=== PATIENT | female | born 1975 | race Caucasian/White ===

== ENCOUNTER 2021-02-28 10:14 | Outpatient (REF) | payer MEDICAID, SELFPAY ==
--- NOTE | ~2021-02-28 | XR_ITS ---
EXAMINATION: XR HAND, RIGHT XR HAND, LEFT CLINICAL INFORMATION: M05.9 - Rheumatoid arthritis with rheumatoid factor COMPARISON: Radiographs bilateral hands 02/05/2017 TECHNIQUE: Each hand is imaged in 3 views. There are total of 6 views. FINDINGS: Right: There is normal bony mineralization. No periarticular demineralization. There is no fracture, dislocation, destructive process. No focal soft tissue swelling. The ulnar variance is neutral. Again, there are prominent osteoarthritic changes involving the first carpometacarpal joint, slightly increased since prior exam 2016. The remainder of the carpus is unremarkable. No chondrocalcinosis. The MCP and interphalangeal joints are unremarkable. No joint narrowing or erosive change. Left: There is normal bony mineralization. No periarticular demineralization. There is no fracture, dislocation, destructive process. No focal soft tissue swelling. The ulnar variance is neutral. The carpus shows no joint narrowing or erosive change or chondrocalcinosis. The MCP and interphalangeal joints are unremarkable. No joint narrowing or erosive change. XR/XR hand LT min 3V IMPRESSION: 1. Right: Osteoarthritis first carpometacarpal joint. 2. Left: Unremarkable. No joint narrowing or erosive change.
--- NOTE | ~2021-02-28 | XR_ITS ---
EXAMINATION: XR HAND, RIGHT XR HAND, LEFT CLINICAL INFORMATION: M05.9 - Rheumatoid arthritis with rheumatoid factor COMPARISON: Radiographs bilateral hands 02/05/2017 TECHNIQUE: Each hand is imaged in 3 views. There are total of 6 views. FINDINGS: Right: There is normal bony mineralization. No periarticular demineralization. There is no fracture, dislocation, destructive process. No focal soft tissue swelling. The ulnar variance is neutral. Again, there are prominent osteoarthritic changes involving the first carpometacarpal joint, slightly increased since prior exam 2016. The remainder of the carpus is unremarkable. No chondrocalcinosis. The MCP and interphalangeal joints are unremarkable. No joint narrowing or erosive change. Left: There is normal bony mineralization. No periarticular demineralization. There is no fracture, dislocation, destructive process. No focal soft tissue swelling. The ulnar variance is neutral. The carpus shows no joint narrowing or erosive change or chondrocalcinosis. The MCP and interphalangeal joints are unremarkable. No joint narrowing or erosive change. XR/XR hand RT min 3V IMPRESSION: 1. Right: Osteoarthritis first carpometacarpal joint. 2. Left: Unremarkable. No joint narrowing or erosive change.
--- NOTE | ~2021-02-28 | XR_ITS ---
EXAMINATION: XR CHEST CLINICAL INFORMATION: Rheumatoid arthritis with rheumatoid factor COMPARISON: Chest radiographs 05/12/2017, 10/11/2014 TECHNIQUE: 2 views of the chest were obtained. FINDINGS: The lungs are clear. There are no visible fibrotic changes on plain film. No airspace consolidation, pleural thickening, or effusion. The heart is normal in size. The hilar and mediastinal contours are normal. Tapering at the right cardiophrenic angle is consistent with areolar tissue. There is mild levocurvature thoracic spine with mild multilevel degenerative changes. XR/XR chest 2V IMPRESSION: Unremarkable examination.
--- NOTE | ~2021-02-28 | XR_ITS ---
EXAMINATION: XR CERVICAL SPINE CLINICAL INFORMATION: M05.9 - Rheumatoid arthritis with rheumatoid factor COMPARISON: None TECHNIQUE: 3 views of the cervical spine were obtained. FINDINGS: There is rightward tilting cervical spine on frontal view. The cervical vertebral bodies are normal in height and there is no vertebral compression, spondylolisthesis, destructive process, or prevertebral soft tissue swelling. There is normal cervical lordosis. Bridging anterior osteophytes are present at multiple levels. There is borderline disc narrowing C5-C6 and C6-C7. No visible erosive changes. The facets are unremarkable. The odontoid appears intact. XR/XR cervical spine 2V IMPRESSION: 1. Multilevel anterior bridging osteophytes. 2. Mild disc narrowing C5-C6 and C6-C7. No erosive changes.
[2021-02-28 11:43] LABS: MANUAL DIFF FLAG NO
[2021-02-28 11:48] LABS: Basophils Percent Auto 0.5 % (0-2); Eosinophils Absolute Auto 0.1 X10*3/uL (0.0-0.4); Eosinophils Percent Auto 0.7 % (0-4); Hematocrit 40.9 % (37-47); Hemoglobin 13.8 g/dl (12.0-16.0); Imm Gran Abs Auto 0.03 X10*3/uL (0.00-0.03); Imm Gran Pct Auto 0.4 % (0.0-0.4); Lymphocytes Absolute Auto 2.6 X10*3/uL (1.2-4.9); Lymphocytes Percent Auto 35.7 % (20-40); Mean Corpuscular HGB Conc 33.7 g/dl (31.0-35.0); Mean Corpuscular Hemoglobin 28.9 pg (27.0-33.0); Mean Corpuscular Volume 85.6 fL (80-98); Mean Platelet Volume 9.6 fL (9.4-12.3); Monocytes Absolute Auto 0.4 X10*3/uL (0.1-1.2); Neutrophils Absolute Auto 4.3 X10*3/uL (2.0-8.3); Neutrophils Percent Auto 57.7 % (45-73); Platelet Count 284 X10*3/uL (160-400); Red Blood Count 4.78 X10*6/uL (4.20-5.50); Red Cell Distribution Width 14.4 % (11.0-16.0); White Blood Count 7.4 X10*3/uL (4.8-10.8)
[2021-02-28 12:19] LABS: Alanine Aminotransferase 18 U/L (0-31); Albumin Level 4.2 g/dL (3.5-5.0); Alkaline Phosphatase 95 U/L (39-117); Anion Gap 13 (12-20); Aspartate Amino Transferase 46 U/L (5-31); Bilirubin Total 0.7 mg/dL (0.0-1.0); Blood Urea Nitrogen 6 mg/dL (9-16); C Reactive Protein 0.29 mg/dL (< or = 0.50); Calcium 9.8 mg/dL (8.4-10.2); Carbon Dioxide 25 mmol/L (22-29); Chloride 104 mmol/L (96-108); Estimated Glomerular Filt Rate > 60; Glucose Random 101 mg/dL (60-115); Potassium 3.8 mmol/L (3.3-5.1); Sodium 138 mmol/L (135-145); Total Protein 6.8 g/dL (6.5-8.0)
[2021-02-28 12:32] LABS: Erythrocyte Sedimentation Rate 14 MM/HR (0-20)
[2021-03-02 07:50] LABS: HBc Num1 0.05 S/CO (0.00-0.79); Hepatitis A Antibody IgM 0.25 Index (0-0.79); Hepatitis B Core Antibody Nonreactive (Nonreactive); ~HepC Num1 2.38 S/CO (0.00-0.79); ~Hepatitis A Antibody IgM Nonreactive (Nonreactive); ~Hepatitis C Antibody Reactive (Nonreactive)
[2021-03-02 08:08] LABS: HBS Num1 54.19 mIU/mL (0-7.99); HBsAGNum1 0.32 S/CO (0.00-0.99); Hepatitis B Surface Antigen Negative (Negative); ~Hepatitis B Surface Antibody REACTIVE (Nonreactive)
[2021-03-02 13:36] LABS: Cyclic Citrullinated Peptide <16 UNITS
[2021-03-02 20:52] LABS: TS Negative Control Passed; TS Panel A 0; TS Panel B 0; TS Positive Control Passed; TSpotTB Negative (SeeBelow)
[2021-03-04 14:27] LABS: HCV Log PCR <1.18 NOT DETECTED Log IU/mL (NOT DETECTED); HepC Viral Load <15 NOT DETECTED IU/mL (NOT DETECTED)
== END 2021-02-28 10:15 | disposition home or self-care (01) ==
LOC: HO.XRAY 10:14
PROVIDERS: PCP Internal Medicine; Visit Provider Student in an Organized Health Care Education/Training Program
DX: M05.9 Rheumatoid arthritis with rheumatoid factor, unspecified (principal); Z79.899 Other long term (current) drug therapy
CPT/HCPCS: 36415; 71046; 72040; 73130; 80053; 85025; 85652; 86140; 86200; 86481; 86704; 86706; 86709; 86803; 87340; 87522; 99202

== ENCOUNTER → 2021-03-16 14:44 | Outpatient (BNVA) | payer MEDICAID, SELFPAY | PROVIDERS: PCP Internal Medicine; Visit Provider Student in an Organized Health Care Education/Training Program | DX: M05.9 Rheumatoid arthritis with rheumatoid factor, unspecified (principal) | CPT/HCPCS: 99212 ==

== ENCOUNTER → 2021-03-26 13:10 | Outpatient (BNVA) | payer MEDICAID, SELFPAY | PROVIDERS: Visit Provider Internal Medicine | DX: R76.8 Other specified abnormal immunological findings in serum (principal) | CPT/HCPCS: 99202 ==

== ENCOUNTER 2021-05-22 11:45 | Outpatient (REF) | payer MEDICAID, SELFPAY ==
[2021-05-22 12:11] LABS: MANUAL DIFF FLAG NO
[2021-05-22 12:15] LABS: Basophils Percent Auto 0.3 % (0-2); Eosinophils Absolute Auto 0.1 X10*3/uL (0.0-0.4); Eosinophils Percent Auto 1.3 % (0-4); Hematocrit 38.2 % (37-47); Hemoglobin 12.7 g/dl (12.0-16.0); Imm Gran Abs Auto 0.07 X10*3/uL (0.00-0.03); Imm Gran Pct Auto 0.8 % (0.0-0.4); Lymphocytes Absolute Auto 3.6 X10*3/uL (1.2-4.9); Lymphocytes Percent Auto 40.9 % (20-40); Mean Corpuscular HGB Conc 33.2 g/dl (31.0-35.0); Mean Corpuscular Hemoglobin 29.5 pg (27.0-33.0); Mean Corpuscular Volume 88.6 fL (80-98); Mean Platelet Volume 9.1 fL (9.4-12.3); Monocytes Absolute Auto 0.5 X10*3/uL (0.1-1.2); Monocytes Percent Auto 5.3 % (2-11); Neutrophils Absolute Auto 4.5 X10*3/uL (2.0-8.3); Neutrophils Percent Auto 51.4 % (45-73); Platelet Count 226 X10*3/uL (160-400); Red Blood Count 4.31 X10*6/uL (4.20-5.50); Red Cell Distribution Width 15.1 % (11.0-16.0); White Blood Count 8.7 X10*3/uL (4.8-10.8)
[2021-05-22 12:36] LABS: Alanine Aminotransferase 13 U/L (0-31); Albumin Level 3.9 g/dL (3.5-5.0); Alkaline Phosphatase 87 U/L (39-117); Anion Gap 11 (12-20); Aspartate Amino Transferase 25 U/L (5-31); Bilirubin Total 0.4 mg/dL (0.0-1.0); Blood Urea Nitrogen 9 mg/dL (9-16); C Reactive Protein 0.37 mg/dL (< or = 0.50); Calcium 9.5 mg/dL (8.4-10.2); Carbon Dioxide 29 mmol/L (22-29); Chloride 103 mmol/L (96-108); Estimated Glomerular Filt Rate > 60; Glucose Random 101 mg/dL (60-115); Sodium 139 mmol/L (135-145); Total Protein 6.3 g/dL (6.5-8.0)
[2021-05-22 13:11] LABS: Erythrocyte Sedimentation Rate 17 MM/HR (0-20)
== END 2021-05-22 11:46 | disposition home or self-care (01) ==
LOC: HO.LAB 11:45
PROVIDERS: PCP Internal Medicine; Visit Provider Student in an Organized Health Care Education/Training Program
DX: M05.9 Rheumatoid arthritis with rheumatoid factor, unspecified (principal)
CPT/HCPCS: 36415; 80053; 85025; 85652; 86140

== ENCOUNTER → 2021-05-31 15:40 | Outpatient (BNVA) | payer MEDICAID, SELFPAY | PROVIDERS: PCP Internal Medicine; Visit Provider Student in an Organized Health Care Education/Training Program | DX: M05.9 Rheumatoid arthritis with rheumatoid factor, unspecified (principal) | CPT/HCPCS: 99212 ==

== ENCOUNTER → 2021-06-19 12:49 | Outpatient (BNVA) | payer MEDICAID, SELFPAY | PROVIDERS: PCP Internal Medicine; Visit Provider Student in an Organized Health Care Education/Training Program ==

== ENCOUNTER 2024-03-11 16:19 | Outpatient (REF) | payer MEDICAID, SELFPAY ==
[2024-03-12 21:09] LABS: C. trachomatis RNA TMA NOT DETECTED (NOT DETECTED); N. gonorrhoeae RNA TMA NOT DETECTED (NOT DETECTED)
== END 2024-03-11 16:20 | disposition home or self-care (01) ==
LOC: HO.HHCLNP 16:19
PROVIDERS: Visit Provider Internal Medicine
DX: Z01.419 Encounter for gynecological examination (general) (routine) without abnormal findings (principal)
CPT/HCPCS: 81513; 87491; 87591; 88142

== ENCOUNTER 2024-10-28 11:59 | Outpatient (REF) | payer MEDICAID, SELFPAY ==
[2024-10-28 14:03] LABS: Alanine Aminotransferase 19 U/L (0-31); Albumin Level 3.6 g/dL (3.5-5.0); Alkaline Phosphatase 104 U/L (39-117); Anion Gap 9 (12-20); Aspartate Amino Transferase 44 U/L (5-31); Bilirubin Direct 0.1 mg/dL (0.0-0.5); Bilirubin Total 0.3 mg/dL (0.0-1.0); Blood Urea Nitrogen 5 mg/dL (9-16); Calcium 9.8 mg/dL (8.4-10.2); Carbon Dioxide 30 mmol/L (22-29); Chloride 105 mmol/L (96-108); Cholesterol 192 mg/dL (<200); Estimated Glomerular Filt Rate > 60; Glucose Random 91 mg/dL (60-115); HDL Cholesterol 42 mg/dL (>40); LDL Cholesterol Calculated 120 mg/dL (<100); Potassium 3.9 mmol/L (3.3-5.1); Sodium 140 mmol/L (135-145); TSH reflex Free T4 3.75 uIU/mL (0.32-4.0); Total Protein 6.3 g/dL (6.5-8.0); Triglycerides 151 mg/dL (<150); Vitamin D 25-OH Total 22.1 ng/mL (>30)
[2024-10-28 14:22] LABS: Reflex LDLD? No
[2024-10-31 04:59] LABS: TS Negative Control Passed; TS Panel A 1; TS Panel B 0; TS Positive Control Passed; TSpotTB Negative (Negative)
== END 2024-10-28 12:00 | disposition home or self-care (01) ==
LOC: HO.HHCL 11:59
PROVIDERS: Visit Provider Internal Medicine
DX: R56.9 Unspecified convulsions (principal); M05.79 Rheumatoid arthritis with rheumatoid factor of multiple sites without organ or systems involvement
CPT/HCPCS: 36415; 80053; 80061; 82248; 82306; 84443; 86481

== ENCOUNTER → 2024-11-28 19:11 | Outpatient (BNV) | payer MEDICAID, SELFPAY | PROVIDERS: PCP Internal Medicine; Visit Provider Radiology Diagnostic Radiology | DX: M47.22 Other spondylosis with radiculopathy, cervical region (principal) | CPT/HCPCS: 72141 ==

== ENCOUNTER 2024-11-28 19:12 | Outpatient (REF) | payer MEDICAID, SELFPAY ==
--- NOTE | ~2024-11-28 | MR_ITS ---
EXAMINATION: MR CERVICAL SPINE WITHOUT CONTRAST CLINICAL INFORMATION: Cervical radiculopathy. COMPARISON: None available. TECHNIQUE: MRI of the cervical spine was obtained using routine sequences without contrast. FINDINGS: Submitted for interpretation on November 30, 2024. Craniocervical junction is intact. No bone marrow STIR signal abnormality. Cervical spinal cord signal is normal. There is a grade 1 retrolisthesis C6-7. There is a grade 1 anterolisthesis C5-6. Syndesmophyte formation/marginal osteophyte formation at C5-6 and C6-7 levels and to a lesser extent C4-5. C2-3: Broad-based disc osteophyte complex formation. No neuroforamina stenosis. No cord compression. C3-4: Broad-based disc osteophyte complex formation. No neuroforamina stenosis. No cord compression. C4-5: Broad-based disc osteophyte compresses formation. No cord compression. No neuroforamina stenosis. C5-6: Broad-based disc osteophyte complex formation. No neuroforamina stenosis. No cord compression. C6-7: Broad-based disc osteophyte complex formation. No cord compression. No neuroforamina stenosis. C7-T1: No disc herniation. No neuroforamina stenosis. No prevertebral compartment hematoma, mass or fluid collection. Flow void signal within the main vessels is normal. Right vertebral artery is dominant. MR/MR cervical spine wo con IMPRESSION: Multilevel cervical spondylosis, C3 C7 without cord compression, edema and or myelopathy. Electronically signed by: Richard Acuña MD 12/01/2024 07:26 AM JONAS
== END 2024-11-28 19:13 | disposition home or self-care (01) ==
LOC: HO.MRI 19:12
PROVIDERS: PCP Internal Medicine; Visit Provider Internal Medicine
DX: M54.12 Radiculopathy, cervical region (principal)
CPT/HCPCS: 72141

== ENCOUNTER 2025-08-23 17:09 | Emergency (ER) | payer MEDICARE, MEDICAID, SELFPAY ==
[2025-08-23 17:22] VITALS: BP 116/83; PULSE 73; RESP 18; TEMP 36.2; O2SAT 97; BMI 25.4
--- NOTE | 2025-08-23 17:23 | PC.NURSE ---
to call daughter [phone]
[2025-08-23 18:34] VITALS: BP 99/53; PULSE 71; RESP 15; TEMP 36.6; O2SAT 99
--- NOTE | 2025-08-23 18:41 | ED.SEIZURE ---
HPI - Seizure General Chief Complaint: Seizure Stated Complaint: 2 witnessed pérez, A&O x4 Time Seen by Provider: 08/23/25 17:43 Source: patient, family and EMS Mode of arrival: EMS Limitations: no limitations History of Present Illness ED Provider: Dr. Traci Black HPI Narrative: Patient comes to the emergency room via ambulance. According to the patient and her family patient had 2 seizures. According to the patient, they were both witnessed. No head injury. Patient takes Keppra, numbness doses. Patient states that she has mild bilateral musculoskeletal pain, no head injury, no blood thinners. Patient was over to the ground by family. According to the patient, she had a seizure a proximally 2-3 weeks ago, patient's Keppra was increased by the PCP. Patient has a new appointment pending for neurology in couple of weeks.. According to the family, patient has had EEGs in the past, nondiagnostic. Patient states that she feels sad, has been having problems with her up ?dysfunctional family?, patient crying, states that she is afraid that her mother will on her any time now. Patient admits that she has a lot of anxiety. Related Data Home Medications ?Medication ?Instructions ?Recorded ?Confirmed cholecalciferol (vitamin D3) 25 25 mcg PO DAILY 02/28/21 mcg (1,000 unit) capsule levetiracetam 750 mg tablet 1,500 mg PO BID 02/28/21 (Keppra) Previous Rx's ?Medication ?Instructions ?Recorded folic acid 1 mg tablet 1 mg PO DAILY #30 tabs 03/16/21 methotrexate sodium 2.5 mg tablet 10 mg (4 x 2.5 mg) PO QWEEK #16 05/30/21 tabs adalimumab 40 mg/0.4 mL See Rx Instructions subcut 10/02/21 subcutaneous pen kit (Humira(CF) .COMPLEX #2 ea Pen) Allergies Allergy/AdvReac Type Severity Reaction Status Date / Time doxycycline Allergy Intermediate hives Verified 08/23/25 17:23 bee pollen (BEE STINGS) Allergy Unknown SWELLING Verified 08/23/25 17:23 bee stings Allergy Unknown swelling Uncoded 08/23/25 17:23 mushrooms Allergy Unknown hives Uncoded 08/23/25 17:23 Review of Systems Review of Systems: Constitutional : No Weight loss, No Fever, No Chills, No Night Sweats, No Fatigue, No Malaise ENT/Mouth : No Hearing loss, No Ear Pain, No Nasal Congestion, No Sinus Pain, No Hoarseness, No sore throat, No Rhinorrhea, No Swallowing Difficulty Eyes: No Eye Pain, No Swelling, No Redness, No Foreign Body, No Discharge, No Vision Changes Cardiovascular : No Chest Pain, No SOB, No Dyspnea on Exertion, No Orthopnea, No Edema, No Palpitations Respiratory : No Cough, No Sputum, No Wheezing, No Smoke Exposure, No Dyspnea Gastrointestinal : No Nausea, No Vomiting, No Diarrhea, No Constipation, No abdominal Pain, No Hematochezia, No Melena Genitourinary : no irregular bleeding, No Dysuria, No Urinary Frequency, No Hematuria, No Urinary Incontinence, No Urgency, No Flank Pain, No Urinary Flow Changes, No Hesitancy Musculoskeletal : No joint pain, No Myalgias, No Joint Swelling Skin : No Skin Lesions, No rash Neuro : Complaining of having a seizure, No Weakness, No Numbness, No Paresthesias, No Loss of Consciousness, No Dizziness, No Headache Psych : Complaining of anxiety, No Depression, No SI/HI/AH/VH, No Social Issues, Heme/Lymph: No Bruising, No Bleeding,No Lymphadenopathy Endocrine : No Polyuria, No Polydipsia, No Temperature Intolerance PMFSH Past Medical History Medical History Smoker PTSD (post-traumatic stress disorder) Anxiety Depression Polyarthralgia Seizures Surgical History Hx of section Hx of tubal ligation Family History Family History Mother Lupus HTN (hypertension) Diabetes Arthritis Sister Thyroid disease Arthritis Father Alcoholism HTN (hypertension) Legally blind Depression Social History Social History Alcohol intake: never Cigarettes Per Day: 4 Years Smoked: 20 Advance Directives: No Advance Directives Information Provided: Yes Physical Exam Exam: Exam: Appearance: Alert. Oriented X3. No acute distress. Eyes: Pupils equal, round and reactive to light. ENT: Pharynx normal. Neck: Normal inspection. Neck supple. No lymph nodes noted. No crepitus CVS: Normal heart rate and rhythm. Pulses normal. Normal S1 and S2 Respiratory: No respiratory distress. Breath sounds normal. No Wheezing. No rales Abdomen: Soft and nontender. No rigidity. No distention. Skin: Skin warm and dry. Normal skin color. Normal skin turgor. Extremities: No lower extremity edema. No Lacerations. No Rash Neuro: Oriented X 3. No motor deficit. No sensory deficit. Moving all extremities. No slurred speech. CN 2 through 12 grossly intact Psych: calm, cooperative, normal affect Vital Signs: Vital Signs: Last Vital Signs Temp 98 F 08/23/25 18:34 Pulse 71 08/23/25 18:34 Resp 15 08/23/25 18:34 BP 99/53 L 08/23/25 18:34 Pulse Ox 99 08/23/25 18:34 O2 Del Method Room Air 08/23/25 18:34 BMI result Body Mass Index 25.4 Course Course Course Narrative: Patient tearful, saying that she has a lot going on at home. Patient states that she does not want any blood work, just wants to go home. Patient is alert and oriented x3, no acute distress, a bit tearful, coherent. Patient declining any further workup and wants to go home. Medical Decision Making Medical Decision Making [facility] Narrative: Patient states that she is compliant with her Keppra. Had 2 seizures today. Patient refusing any labs. Patient not postictal. Patient has not her chart history of seizure. However, it may be a combination of seizures versus pseudoseizures? . Patient is not SI or HI, no need for section 12. Per patient's request, patient is being discharged, patient leaving against medical advice Critical Care Time Critical Care Time Critical Care Time: Yes Total Critical Care Time: 60 Attestation: I have personally provided critical care time. Time includes review of lab data, radiology results, discussion with consultants, and monitoring for potential decompensation. Intervention performed as documented. Discharge Plan Discharge Clinical Impression: Seizure Patient Disposition: Left Against Medical Advice Instructions: Recurrent Seizures in Adults (ED) Additional Instructions: Please follow-up with your primary care physician tomorrow. If you have any worsening or new symptoms, please return to the emergency room or call 911 Prescriptions: No Action methotrexate sodium 2.5 mg tablet 10 mg PO QWEEK Qty: 16 3RF Humira(CF) Pen 40 mg/0.4 mL pen injector kit See Rx Instructions subcut .COMPLEX Qty: 2 0RF Rx Instructions: inject one - 40 mg/0.4 mL pen every 2 weeks subcut levetiracetam [Keppra] 750 mg tablet 1,500 mg PO BID cholecalciferol (vitamin D3) 25 mcg (1,000 unit) capsule 25 mcg PO DAILY folic acid 1 mg tablet 1 mg PO DAILY Qty: 30 3RF Print Language: Fijian
--- OUTSIDE RECORDS SUMMARY | 2025-08-23 19:06 | XMS_ITS | Clinical Summary ---
Author Organization [facility] Address [address] [place] [phone] Phone Care Team Providers Care Scallop Cutter Machine Name Role Phone Phil Kruse MD Primary Care Provide r Allergies Active Allergy Reactions Criticality Noted Date Comments Bee Pollen 02/22/2020 Doxycycline Calcium 02/22/2020 Mushroom 04/12/2019 Medications levETIRAcetam (KEPPRA) 500 MG tablet Take 500 mg by mouth 2 (two) times a day. Active cyanocobalamin, vitamin B-12, 1,000 mcg/mL Drop Active EPINEPHrine 0.3 mg/0.3 mL auto-injector Inject 0.3 mg into the muscle. 06/14/2022 Active prazosin (MINIPRESS) 5 MG capsule Take 5 mg by mouth. 10/28/2022 Active ARIPiprazole (ABILIFY) 10 MG tablet Take 10 mg by mouth. 10/28/2022 Active Active Problems Problem Noted Date Diagnosed Date Neck pain 10/18/2022 Primary osteoarthritis of both hips 10/18/2022 Social History Tobacco Use Types Packs/Day Years Used Date Smoking Tobacco: Every Day Smokeless Tobacco: Current Alcohol Use Standard Drinks/Week Comments Not Currently 0 (1 standard drink = 0.6 oz pur e alcohol) Trying to stop drinking Education Answer Date Recorded Are you interested in more education? Not on marcello e 03/14/2023 Are you concerned about learning? Not on file 03/14/2023 No 03/14/2023 No 03/14/2023 Digital Access Answer Date Recorded No 04/14/2023 No 04/14/2023 No 04/14/2023 Reliable internet access at home? Not on file 04/14/2023 Device with a working camera? Not on file Comments No Sex and Gender Information Value Date Recorded Sex Assigned at Female 04/12/2019 2:45 PM EDT Legal Sex Female 9:31 PM EDT Gender Identity Female 04/12/2019 2:45 PM EDT Sexual Orientation Bisexual 04/12/2019 2: 45 PM EDT Last Filed Vital Signs Vital Sign Reading Time Taken Comments Blood Pressure 122/68 11/11/2022 8:24 AM EST Pulse 78 11/11/2022 8:24 AM EST Temperature 36.7 C (98.1 F) 11/11/2022 8:24 AM EST Respiratory Rate 16 11/11/2022 8:24 AM EST Oxygen Saturation 96% 11/11/2022 8:24 AM EST Inhaled Oxygen Concentration - - Weight 57.2 kg (126 lb) 10/25/2022 1:21 PM EST Height 149.9 cm (4' 11 ) 10/25/2022 1:21 PM EST Body Mass Index 25.45 10/25/2022 1:21 PM EST Plan of Treatment Health Maintenance Due Date Last Done Comments LIPID PANEL 1973 DEPRESSION SCREENING 1985 SMOKING Hx and SMOKELESS TOBACCO SCREENING 1986 HEPATITIS C SCREENING 1991 HIV ONE-TIME SCREENING (18-6 5 YEARS) 1991 PNEUMOCOCCAL VACCINES (50+ years) (1 of 2 - PCV) 1992 PAP SMEAR 1994 SCREENING FOR DIABETES 2008 MAMMOGRAM 2013 COLOGUARD 2018 COLONOSCOPY 2018 COLORECTAL CANCER SCREENING 2018 FIT TEST 2018 FOBT 2018 SIGMOIDOSCOPY 2018 VIRTUAL COLONOSCOPY 2018 ZOSTER VACCINES (1 of 2) 2023 INFLUENZA VACCINE (#1) 2025 , 09/09/2019, 11/08/2016 COVID-19 VACCINE (2 - 2024-2 6 season) 2025 10/09/2021 Adult Td,Tdap Booster 11/08/2026 11/08/2016 , 03/21/2015 HEPATITIS A VACCINES Aged Out No long er eligible based on patient's age to complete this topic HIB VACCINES Aged Out No longer eligi ble based on patient's age to complete this topic MENINGOCOCCAL VACCINES (ACWY) Aged Out No longer eligible based on patient's age to complete this topic MENINGOCOCCAL VACCINES (B) Aged Out N o longer eligible based on patient's age to complete this topic Medical Devices Not on file Insurance C3 ACO C3 ACO C3 ACO C3 ACO C3 ACO C3 ACO C3 ACO C3 ACO WORKERS COMPENSATION Care Teams Scallop Cutter Machine Relationship Specialty Start Date End Date Phil Kruse MD [address] [place] [address] [address] [place] [address] [email or web address] PCP - General Internal Medicine 04/12/19 Additional Source Comments The information contained in this document represents components of the legal health record. It is not the complete legal health record.[facility]
--- OUTSIDE RECORDS SUMMARY | 2025-08-23 19:06 | XMS_ITS | Encounter Summary ---
Author Organization [employer] Address [address] [place] [address] Care Team Providers Care Supervisor Audit Clerks Name Role Phone Jeri Johnson MD Primary Care Provider + Reason for Visit * Reason Onset Date Comments Med Refill 09/14/2024 Encounter Details Date Type Department Care Team (Late st Contact Info) Description 09/14/2024 Refill [facility] [address] [place] [address] Jeri Johnson MD [address] [place] [address] Social History Tobacco Use Types Packs/Day Years Used Date Smoking Tobacco: Every Day Cigarettes Smokeless Tobacco: Never Alcohol Use Standard Drinks/Week Comments Never 0 (1 standard drink = 0.6 oz pur e alcohol) Housing Stability Answer Date Recorded What is your housing situation today? I have josué barker 06/23/[address] you li ve. Do you have problems with any of the following? None of the above 06/23/2024 Food Insecurity Answer Date Recorded Within the past 12 months, y ou worried that your food would run out before you got money to buy more: Sometimes True 2023 Within the past 12 months,th e food you bought just didn't last and you didn't have enough money to get more: Sometimes True 06/23/2024 Transportation Answer Date Recorded In the past 12 months, has l ack of transportation kept you from medical appts, meetings, work or from getting things needed for daily living? Yes, it has kept me from non-medical meetings, work, or getting things that I need 06/23/2024 Utilities Answer Date Recorded In the past 12 months, has t he electric, gas, oil or water company threatened to shut off services in your home? No 06/23/2024 Depression Answer Date Recorded Patient Health Questionnaire-2 Score 1 10/28/2022 Internet Access Answer Date Recorded Internet Access Q1 Yes 07/18/2024 Internet Access Q2 Not on file 07/18/2024 Comments No Sex and Gender Information Value Date Recorded Sex Assigned at Female 09/16/2022 10:16 AM EDT Legal Sex Female 10:16 AM EDT Gender Identity Female 09/16/2022 10:16 AM EDT Sexual Orientation Straight 09/16/2022 10 :16 AM EDT documented as of this encounter Plan of Treatment Upcoming Encounters Date Type Department Care Team (Late st Contact Info) Description 12/16/2025 2:00 PM EST Office Visit [facility] [address] [place] [address] Charley Charlton, OD [address] [place] [address] documented as of this encounter Visit Diagnoses Not on filedocumented in this encounter Care Teams Supervisor Audit Clerks Relationship Specialty Start Date End Date Jeri Johnson MD [address] [place] [address] PCP - General Family Medicine 09/09/19 documented as of this encounter
--- OUTSIDE RECORDS SUMMARY | 2025-08-23 19:06 | XMS_ITS | Encounter Summary ---
Author Organization [employer] Address [address] [place] [address] Care Team Providers Care Manager Web Application Name Role Phone Jeri Johnson MD Primary Care Provider + Encounter Details Date Type Department Care Team ([facility] st Contact Info) Description 09/15/2024 Orders Only [facility] MEDICINE [address] [place], [place] [phone] Jeri Johnson MD [address] [place], [place] [phone] Social History Tobacco Use Types Packs/Day Years Used Date Smoking Tobacco: Every Day Cigarettes Smokeless Tobacco: Never Alcohol Use Standard Drinks/Week Comments Never 0 (1 standard drink = 0.6 oz pur e alcohol) Housing Stability Answer Date Recorded What is your housing situation today? I have josuéheraclio barker 06/23/[address] you [...] Description 12/16/2025 2:00 PM EST Office Visit [facility] [address] [place] [address] Zoltan, Charley, OD [address] [place] [address] documented as of this encounter Visit Diagnoses Not on filedocumented in this encounter Care Teams Manager Web Application Relationship Specialty Start Date End Date Jeri Johnson MD [address] [place] [address] PCP - General Family Medicine 09/09/19 documented as of this encounter
--- OUTSIDE RECORDS SUMMARY | 2025-08-23 19:06 | XMS_ITS | Encounter Summary ---
Author Organization [employer] Address [address] [place] [address] Care Team Providers Care Loom Overhauler Name Role Phone Jeri Johnson MD Primary Care Provider + Reason for Visit * Reason Onset Date Comments PT-1 11/03/2024 Encounter Details Date Type Department Care Team ([facility] st Contact Info) Description 11/03/2024 Telephone [facility] MEDICINE [address] [place], [place] [phone] Jeri Johnson MD [address] [place], [place] [phone] PT-1 Social History Tobacco Use Types Packs/Day Years Used Date Smoking Tobacco: Every Day Cigarettes Smokeless Tobacco: Never Alcohol Use Standard Drinks/Week Comments Never 0 (1 standard drink = 0.6 oz pur e alcohol) Depression Answer Date Recorded Patient Health Questionnaire-9 Score 0 09/20/2024 Patient Health Questionnaire-9 Score 0 09/20/2024 Last PHQ-9: Questionnaire Data Not on file 1 11/20/2023 Housing Stability Answer Date Recorded What is [...] Answer Date Recorded Patient Health Questionnaire-2 Score 0 09/20/2024 Internet Access Answer Date Recorded Internet Access Q1 Yes 07/18/2024 Internet Access Q2 Not on file 07/18/2024 Comments No Sex and Gender Information Value Date Recorded Sex Assigned at Female 09/16/2022 10:16 AM EDT Legal Sex Female 10:16 AM EDT Gender Identity Female 09/16/2022 10:16 AM EDT Sexual Orientation Straight 09/16/2022 10 :16 AM EDT documented as of this encounter Miscellaneous Notes * Telephone Encounter - Anna Hoffman - 11/03/2024 8:22 AM EST Tc from pt requesting an update on PT-1 as she has appointment tomorrow documented in this encounter Plan of Treatment Upcoming Encounters Date Type Department Care Team (Late st Contact Info) Description 12/16/2025 2:00 PM EST Office Visit [facility] [address] [place] [address] Charley Charlton, OD [address] [place] [address] documented as of this encounter Visit Diagnoses Not on filedocumented in this encounter Additional Health Concerns Assessment Noted Time PHQ-9 Depression Total Score: 0 09/20/20 24 2:15 PM EST documented as of this encounter Care Teams Loom Overhauler Relationship Specialty Start Date End Date Jeri Johnson MD [address] [place] [address] PCP - General Family Medicine 10/24/19 documented as of this encounter
--- OUTSIDE RECORDS SUMMARY | 2025-08-23 19:06 | XMS_ITS | Encounter Summary ---
Author Organization [employer] Address [address] [facility] [address] [place] [address] Care Team Providers Care Speeder Tender Name Role Phone Jeri Johnson MD Primary Care Provider + Encounter Details Date Type Department Care Team (Latest Contact Info) Description 08/23/2022 Abstract [facility] CONVERSIONS Dental, Provider, DDS Social History Tobacco Use Types Packs/Day Years Used Date Smoking Tobacco: Never Assessed Comments Unknown Sex and Gender Information Value Date Recorded Sex Assigned at Female 09/16/2022 10:16 AM EDT Legal Sex Female 10:16 AM EDT Gender Identity Female 09/16/2022 10:16 AM EDT Sexual Orientation Straight 09/16/2022 10 :16 AM EDT documented as of this encounter Plan of Treatment Upcoming Encounters Date Type Department Care Team (Late st Contact Info) Description 12/16/2025 2:00 PM EST Office Visit [facility] [address] [place] [address] Charley Charlton, OD [address] [place] [address] documented as of this encounter Visit Diagnoses Not on filedocumented in this encounter Care Teams Speeder Tender Relationship Specialty Start Date End Date Jeri Johnson MD [address] [place] [address] PCP - General Family Medicine 09/09/19 documented as of this encounter
--- OUTSIDE RECORDS SUMMARY | 2025-08-23 19:06 | XMS_ITS | Encounter Summary ---
Author Organization [employer] Address [address] [place] [address] Care Team Providers Care Sales Ambassador Name Role Phone Jeri Johnson MD Primary Care Provider + Reason for Visit * Reason Onset Date Comments cx due to covid positive 01/31/2025 Encounter Details Date Type Department Care Team ([facility] st Contact Info) Description 01/31/2025 Telephone [facility]ULT D[facility]AL [address] [place] [address] Cornelio Salas, DDS [address] [place] [address] cx due to covid positive Social History Tobacco Use Types Packs/Day Years [...] encounter Miscellaneous Notes * Telephone Encounter - Tory Garrison - 01/31/2025 2:02 PM EDT Patient cancelled her appt due to being covid positive. Will call office when feeling better to reschedule DR documented in this encounter Plan of Treatment Upcoming Encounters Date Type Department Care Team (Late st Contact Info) Description 12/16/2025 2:00 PM EST Office Visit [facility] OPT[facility]RY [address] [place], [place] [id number] Zoltan, Charley, OD [address] [place] [address] documented as of this encounter Visit Diagnoses Not on filedocumented in this encounter Additional Health Concerns Assessment Noted Time PHQ-9 Depression Total Score: 0 09/20/20 24 2:15 PM EST documented as of this encounter Care Teams Sales Ambassador Relationship Specialty Start Date End Date Jeri Johnson MD [address] [place] [address] PCP - General Family Medicine 09/09/19 documented as of this encounter
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
--- OUTSIDE RECORDS SUMMARY | 2025-08-23 19:06 | XMS_ITS | Encounter Summary ---
Author Organization [email or web address] Address [address] [facility] [address] [place] [address] Care Team Providers Care Summer School Coordinator Name Role Phone Jeri Johnson MD Primary Care Provider + Reason for Visit * Reason Onset Date Comments Med Refill 07/20/2025 Encounter Details Date Type Department Care Team (Late st Contact Info) Description 07/20/2025 Refill [facility] [address] [place] [address] Jeri Johnson MD [address] [place] [address] PTSD (post-traumatic stress disorder) Social History Tobacco Use Types Packs/Day Years [...] Description 12/16/2025 2:00 PM EST Office Visit [facility] [address] [place] [address] Charley Charlton, MONIQUE [address] [place] [address] documented as of this encounter Visit Diagnoses Diagnosis PTSD (post-traumatic stress disorder) Posttraumatic stress disorder documented in this encounter Additional Health Concerns Assessment Noted Time PHQ-9 Depression Total Score: 0 09/20/20 24 2:15 PM EST documented as of this encounter Care Teams Summer School Coordinator Relationship Specialty Start Date End Date Jeri Johnson MD [address] [place] [address] PCP - General Family Medicine 09/09/19 documented as of this encounter
--- OUTSIDE RECORDS SUMMARY | 2025-08-23 19:06 | XMS_ITS | Encounter Summary ---
Author Organization [employer] Address [address] [facility] [address] [place] [address] Care Team Providers Care Network Manager Name Role Phone Jeri Johnson MD Primary Care Provider + Reason for Visit * Reason Onset Date Comments Med Refill 12/17/2024 Encounter Details Date Type Department Care Team ([facility] st Contact Info) Description 12/17/2024 Refill [facility] [address] [place], [place] [phone] Jeri Johnson MD [address] [place], [place] [phone] Social History Tobacco Use Types Packs/Day Years [...] Description 12/16/2025 2:00 PM EST Office Visit [facility] [address] [place] [address] Charley Charlton, OD [address] [place] [address] documented as of this encounter Visit Diagnoses Not on filedocumented in this encounter Additional Health Concerns Assessment Noted Time PHQ-9 Depression Total Score: 0 09/20/20 24 2:15 PM EST documented as of this encounter Care Teams Network Manager Relationship Specialty Start Date End Date Jeri Johnson MD [address] [place] [address] PCP - General Family Medicine 09/09/19 documented as of this encounter
--- OUTSIDE RECORDS SUMMARY | 2025-08-23 19:06 | XMS_ITS | Clinical Summary ---
Author Organization [address] [facility] Address [address] [place] [address] Phone Care Team Providers Care Ferry Pilot Name Role Phone Jeri Johnson MD Primary Care Provider + [phone] Allergies Active Allergy Reactions Criticality Noted Date Comments Bee Venom Protein (Honey Bee) Anaphylaxis High 09/28 Doxycycline Swelling,Bruising 02/14/2025 Mushroom Hives 02/14/2025 Medications albuterol HFA (PROAIR HFA ; PROVENTIL HFA ; VENTOLIN HFA) 90 mcg/actuation inhaler Inhale 2 puffs by mouth every 6 (six) hours if needed for wheezing. Active albuterol 2.5 mg /3 mL (0.083 %) nebulizer solution Take 3 mL (2.5 mg total) by nebulization every 6 (six) hours if needed for wheezing. Active ARIPiprazole (ABILIFY) 10 mg tablet Take 1 tablet (10 mg total) by mouth 1 (one) time each day. Active cyanocobalamin (VITAMIN B-12) 100 mcg tablet Take 1 tablet (100 mcg total) by mouth 1 (one) time each day. Active cyclobenzaprine (FLEXERIL) 10 mg tablet Take 1 tablet (10 mg total) by mouth 3 (three) times a day if needed for muscle spasms. Active EPINEPHrine 0.3 mg/0.3 mL syringe Inject as directed. Active ergocalciferol (VITAMIN D-2) 1,250 mcg (50,000 unit) capsule Take 1 capsule (50,000 Units total) by mouth 1 (one) time per week. Active folic acid (FOLVITE) 1 mg tablet Take by mouth 1 (one) time each day. Active levETIRAcetam (KEPPRA) 500 mg tablet Take 1.5 tablets (750 mg total) by mouth 2 (two) times a day. Active linaCLOtide (LINZESS) 145 mcg capsule Take 1 capsule (145 mcg total) by mouth 1 (one) time each day. Active methadone (DOLOPHINE) 10 mg tablet Take 12 tablets (120 mg total) by mouth 1 (one) time each day. Active nicotine polacrilex (NICORETTE) [address] 2 mg into mouth between cheek and gum if needed for smoking cessation. Active prazosin (MINIPRESS) 5 mg capsule Take 1 capsule (5 mg total) by mouth at bedtime. Active traZODone (DESYREL) 50 mg tablet Take 1 tablet (50 mg total) by mouth at bedtime. Active bisacodyL (DULCOLAX) 5 mg EC tablet Take 2 tablets by mouth right before beginning bowel prep. See instructions provided by the office 2 tablet 5 Active polyethylene glycol (Golytely) 236-22.74-6.74 -5.86 gram solution Take 4L by mouth once for one dose. May substitue any PEG. Starting at 6PM the night before your procedure drink 1 8oz glasses at your own pace until you complete half of the gallon. Finish 2nd half of the gallon 5 hours before your procedure. 4000 mL 5 Active ketorolac (ACULAR) 0.5 % ophthalmic solution Administer 1 drop into both eyes 4 (four) times a day. 5 Active ciclopirox (PENLAC) 8 % solution Apply topically at bedtime. 5 Active adalimumab (HUMIRA SUBQ) Inject 1.4 mg under the skin every 14 (fourteen) days. Active Social History Tobacco Use Types Packs/Day Years Used Date Smoking Tobacco: Never Assessed Comments Unknown Sex and Gender Information Value Date Recorded Sex Assigned at Female 02/21/2025 9:27 AM EDT Legal Sex Female 1:33 AM EST Gender Identity Female 02/21/2025 9:27 AM EDT Sexual Orientation Bisexual 02/21/2025 9: 30 AM EDT Last Filed Vital Signs Vital Sign Reading Time Taken Comments Blood Pressure - - Pulse - - Temperature - - Respiratory Rate - - Oxygen Saturation - - Inhaled Oxygen Concentration - - Weight 57.2 kg (126 lb) 02/14/2025 2:00 PM EDT Height 149.9 cm (4' 11 ) 02/14/2025 2:00 PM EDT Body Mass Index 25.45 02/14/2025 2:00 PM EDT Plan of Treatment Health Maintenance Due Date Last Done Comments Breast Cancer Screening 1973 Colorectal Cancer Screening: Colonoscopy 1975 Hepatitis A Vaccines (1 of 2 - Risk 2-dose series) 1992 Zoster Vaccines (1 of 2) 2023 08/04/2015 Cholesterol Screening (Lipid Panel) 09/28/2024 HIV Screening 09/28/2024 Hepatitis C Screening 09/28/2024 Social Influencers of Health Screening 09/28/2024 Depression Screening 11/17/2024 COVID-19 Vaccine (2 - season) 2025 10/09/2021 Influenza Vaccine (#1) 2025 , 11/12/2022, 09/19/2021, Additional history exists Cervical Cancer Screening: Pap Smear 03/11/2027 03/11/2024 DTaP,Tdap,and Td Vaccines (4 - Td or Tdap) 11/12/2032 11/12/2022, 11/08/2016, 03/21/2015 RSV Immunization Adult Patients (1 - 1-dose 75+ series) 2048 MMR Vaccines Aged Out 08/04/2015 No longer eligi ble based on patient's age to complete this topic Varicella Vaccines Aged Out 08/04/2015 No longer eligible based on patient's age to complete this topic Hepatitis B Vaccines Completed 06/24/2017, 01/21/2017, 12/19/2016 Pneumococcal Vaccine: 50+ Years Completed 11/12/2022 HIB Vaccines Aged Out No longer eligi ble based on patient's age to complete this topic HPV Vaccines Aged Out No longer eligi ble based on patient's age to complete this topic IPV Vaccines Aged Out No longer eligi ble based on patient's age to complete this topic Meningococcal ACWY Vaccine Aged Out N o longer eligible based on patient's age to complete this topic Meningococcal B Vaccine Aged Out No l onger eligible based on patient's age to complete this topic RSV Immunization Patients Under 20 months Aged Out No longer eligible based on patient's age to complete this topic Insurance [place]ID - [place] Member Subscriber Plan / Payer (Ef fective 2024-Present) Name:Sid Bartlett Relation to Subscriber:Self Name:Sid Bartlett Payer ID:[id number] Group ID:Not on file Type:Not on file Address: [facility] ATTN:[employer] [address] [place] [address] Care Teams Ferry Pilot Relationship Specialty Start Date End Date Jeri Johnson MD [address] [place] [phone] PCP - General Internal Medicine 09/28/24
--- OUTSIDE RECORDS SUMMARY | 2025-08-23 19:06 | XMS_ITS | Encounter Summary ---
Author Organization [employer] Address [address] [facility] [address] [place] [address] Care Team Providers Care Placement Director Name Role Phone Jeri Johnson MD Primary Care Provider + Reason for Visit * Reason Onset Date Comments Med Refill 10/31/2024 Encounter Details Date Type Department Care Team (Late st Contact Info) Description 10/31/[address] [facility] [address] [place] [address] Jeri Johnson MD [address] [place] [address] Social History Tobacco Use Types Packs/Day Years [...] Description 12/16/2025 2:00 PM EST Office Visit [facility] [address] [place] [address] Charley Charlton, OD [address] [place] [address] documented as of this encounter Visit Diagnoses Not on filedocumented in this encounter Additional Health Concerns Assessment Noted Time PHQ-9 Depression Total Score: 0 09/20/20 24 2:15 PM EST documented as of this encounter Care Teams Placement Director Relationship Specialty Start Date End Date Jeri Johnson MD [address] [place], [place] [phone] PCP - General Family Medicine 09/09/19 documented as of this encounter
== END 2025-08-23 18:46 | disposition left against medical advice (07) ==
PROVIDERS: Emergency Provider Emergency Medicine; PCP Internal Medicine
DX: R56.9 Unspecified convulsions (principal); Z79.899 Other long term (current) drug therapy; Z88.1 Allergy status to other antibiotic agents; Z91.030 Bee allergy status
CPT/HCPCS: 99283